=== PATIENT | female | born 2000 ===

== ENCOUNTER → 2020-10-18 | Outpatient (CLI) | payer SELFPAY | LOC: M LABSMTC 13:09 | PROVIDERS: ATTEND Pediatrics | DX: Z20.828 Contact with and (suspected) exposure to other viral communicable diseases (principal) ==

== ENCOUNTER → 2020-10-29 | Outpatient (CLI) | payer SELFPAY | LOC: M LABSMTC 14:04 | PROVIDERS: ATTEND Pediatrics | DX: Z20.828 Contact with and (suspected) exposure to other viral communicable diseases (principal) ==